=== PATIENT | female | born 1975 | race Caucasian/White ===

== ENCOUNTER → 2018-04-15 09:00 | Outpatient (CLI) | payer BC, SELFPAY ==
[2018-04-15 08:57] VITALS: BMI 37.4
[2018-04-20 08:57] LABS: HPV APTIMA, High Risk Negative (Negative)
== END ==
PROVIDERS: Referring Provider Nurse Practitioner Women's Health; Visit Provider Nurse Practitioner Women's Health
DX: Z12.4 Encounter for screening for malignant neoplasm of cervix (principal)
CPT/HCPCS: 87624; 88175; G0145

== ENCOUNTER → 2018-04-22 13:52 | Outpatient (CLI) | payer BC, SELFPAY ==
[2018-04-15 08:57] VITALS: BMI 37.4
--- NOTE | 2018-04-22 13:59 | US_ITS ---
STUDY: ULTRASOUND OF THE FEMALE PELVIS - COMPLETE REASON FOR EXAM: Female, 42 years old. Abnormal bleeding TECHNIQUE: Transabdominal and transvaginal (Transvaginal imaging, if present, was performed for enhanced visualization of uterus and endometrium, and posterior adnexal structures). COMPARISON: None. FINDINGS: The uterus is anteverted in the midline measuring 9.5 x 6.6 x 4.9 cm. Fundal fibroid 17 x 13 x 14 mm. Otherwise normal myometrial echotexture. Endometrium 11.6 mm, normal echotexture. Nabothian cysts of the cervix which is otherwise unremarkable. The right ovary measures 36 x 18 x 15 mm and the left ovary 28 x 17 x 12 mm. Each is normal in echotexture and contains small physiologic follicles with appropriate vascularity. There is a dominant follicle of left ovary measuring 15 mm. Simple cystic features. There is minimal cul-de-sac free fluid. There is no adnexal mass, suspicious cyst or free fluid. US/Pelvic (Non ) IMPRESSION: 17 mm fundal fibroid. Normal thickness and echotexture of the endometrium. Maximum endometrial thickness is 11.6 mm. Physiologic follicles of the ovaries with no suspicious features. Electronically Signed: Darrell Aldana MD at 17:14 EST Tel , Service support ,
--- NOTE | 2018-04-22 13:59 | US_ITS ---
STUDY: ULTRASOUND OF THE FEMALE PELVIS - COMPLETE REASON FOR EXAM: Female, 42 years old. Abnormal bleeding TECHNIQUE: Transabdominal and transvaginal (Transvaginal imaging, if present, was performed for enhanced visualization of uterus and endometrium, and posterior adnexal structures). COMPARISON: None. FINDINGS: The uterus is anteverted in the midline measuring 9.5 x 6.6 x 4.9 cm. Fundal fibroid 17 x 13 x 14 mm. Otherwise normal myometrial echotexture. Endometrium 11.6 mm, normal echotexture. Nabothian cysts of the cervix which is otherwise unremarkable. The right ovary measures 36 x 18 x 15 mm and the left ovary 28 x 17 x 12 mm. Each is normal in echotexture and contains small physiologic follicles with appropriate vascularity. There is a dominant follicle of left ovary measuring 15 mm. Simple cystic features. There is minimal cul-de-sac free fluid. There is no adnexal mass, suspicious cyst or free fluid. US/Transvaginal Non- IMPRESSION: 17 mm fundal fibroid. Normal thickness and echotexture of the endometrium. Maximum endometrial thickness is 11.6 mm. Physiologic follicles of the ovaries with no suspicious features. Electronically Signed: Darrell Aldana MD at 17:14 EST Tel , Service support ,
--- OUTSIDE RECORDS SUMMARY | 2018-06-08 10:24 | XMS RPT_ITS ---
:1975 Author Organization OHIP Support Name Relationship Address Phone [facility] Unavailable [address] + [place] [address] JOSEF MORALES Unavailable [address] + [place] [address] [place] Unavailable [address] + [place] [address] JOSEF MORALES Unavailable [address] + [place] [address] ROHIT LY Unavailable [address] + [place] [address] MARATHON Unavailable XX + [place] [address] JOSEF MORALES Unavailable [address] + [place] [address] ROHIT LY Unavailable [address] + [place] [address] JOSEF MORALES Unavailable [address] + [place] [address] OJSEF MORALES Unavailable [address] + [place] [address] JOSEF MORALES Unavailable [address] + [place] [address] JOSEF MORALES Unavailable [address] + [place] [address] JOSEF MORALES Unavailable [address] + [place] [address] JOSEF MORALES Unavailable [address] + [place] [address] Care Team Providers Name Role Phone IAN URENA, DR. OLMSTEAD Attending Unavailable TAMAYO, SON Primary Care Unavailable TAMAYO, SON Primary Care Unavailable ABILIO, ALECIA Attending Unavailable TAMAYO, SON Attending Unavailable TAMAYO, SON Primary Care Unavailable Clements, Clarisse Attending Unavailable Clements, Clarisse Referring Unavailable YVONNE GALDAMEZ Primary Care Unavailable YVONNE GALDAMEZ Consulting Unavailable Clements, Clarisse Attending Unavailable [place], Leonor Referring Unavailable Alba, Clarisse Attending Unavailable Clements, Clarisse Referring Unavailable PROBLEMS PROBLEMS DATE TYPE CONDITION / CODE ATTENDING STATUS SOURCE 04/16/2018 Unknown Z12.4 - Encounter Alba, Clarisse Active [place] for screening [facility] of cervix / Repository Z12.4(ICD-10) 04/15/2018 Unknown N92.0 - Excessive Clements, Clarisse Active [facility] and frequent [facility] menstruation with [facility] regular cycle / Repository N92.0(ICD-10) 04/15/2018 Unknown Z01.411 - Encounter Alba, Clarisse Active [place] for gynecological [facility] examination Hospital (general) (routine) Repository with abnormal findings / Z01.411(ICD-10) 04/15/2018 Unknown Z12.31 - Encounter Clements, Clarisse Active [place] for screening [facility] mammogram for [facility] malignant neoplasm Repository of breast / Z12.31(ICD-10) 12/26/2017 Admitting Encounter for RODRI TAMAYO Active [facility] medical examination Repository without abnormal findings / Z00.00(ICD-10) PROCEDURES PROCEDURES No Procedure Records FoundRESULTS RESULTS TRANSVAGINAL Observed: 04/22/2018 Status: F Source: HUA NON- 1:59 PM [facility] REPOSITORY [facility] Imaging Services [address] [place] [address] Transvaginal Non- MR#: [id number] Acct: [id number] Name: ANGY MORALES Brandi Rep #: [id number] : 1975 F 42 From: Darrell Aldana MD PCP: OUT OF TOWN DOCTOR Status: REG CLI Study: Transvaginal Non- Date of Exam: 04/22/18 Exam# [id number] Ordering Dr: Clarisse Willis PELLET PREPARATION OPERATOR-C STUDY: ULTRASOUND OF THE FEMALE PELVIS - COMPLETE REASON FOR EXAM: Female, 42 years old. Abnormal bleeding TECHNIQUE: Transabdominal and transvaginal (Transvaginal imaging, if present, was performed for enhanced visualization of uterus and endometrium, and posterior adnexal structures). COMPARISON: None. FINDINGS: The uterus is anteverted in the midline measuring 9.5 x 6.6 x 4.9 cm. Fundal fibroid 17 x 13 x 14 mm. Otherwise normal myometrial echotexture. Endometrium 11.6 mm, normal echotexture. Nabothian cysts of the cervix which is otherwise unremarkable. The right ovary measures 36 x 18 x 15 mm and the left ovary 28 x 17 x 12 mm. Each is normal in echotexture and contains small physiologic follicles with appropriate vascularity. There is a dominant follicle of left ovary measuring 15 mm. Simple cystic features. There is minimal cul-de-sac free fluid. There is no adnexal mass, suspicious cyst or free fluid. US/Transvaginal Non- IMPRESSION: 17 mm fundal fibroid. Normal thickness and echotexture of the endometrium. Maximum endometrial thickness is 11.6 mm. Physiologic follicles of the ovaries with no suspicious features. Electronically Signed: Darrell Aldana MD at 17:14 EST Tel , Service support , CC: MITA Willis; OUT OF [facility] DOCTOR Entry Level Manufacturing Engineer: Signed PELVIC (NON ) Observed: 04/22/2018 Status: F Source: [place] 1:59 PM [facility] REPOSITORY [facility] [place] [address] Pelvic (Non ) MR#: [id number] Acct: [id number] Name: ANGY MORALES Brandi Rep #: [id number] : 1975 F 42 From: Darrell Aldana MD PCP: OUT OF TOWN DOCTOR Status: REG CLI Study: Pelvic (Non ) Date of Exam: 04/22/18 Exam# [id number] Ordering Dr: Clarisse Willis STUDY: ULTRASOUND OF THE FEMALE PELVIS - COMPLETE REASON FOR EXAM: Female, 42 years old. Abnormal bleeding TECHNIQUE: Transabdominal and transvaginal (Transvaginal imaging, if present, was performed for enhanced visualization of uterus and endometrium, and posterior adnexal structures). COMPARISON: None. FINDINGS: The uterus is anteverted in the midline measuring 9.5 x 6.6 x 4.9 cm. Fundal fibroid 17 x 13 x 14 mm. Otherwise normal myometrial echotexture. Endometrium 11.6 mm, normal echotexture. Nabothian cysts of the cervix which is otherwise unremarkable. The right ovary measures 36 x 18 x 15 mm and the left ovary 28 x 17 x 12 mm. Each is normal in echotexture and contains small physiologic follicles with appropriate vascularity. There is a dominant follicle of left ovary measuring 15 mm. Simple cystic features. There is minimal cul-de-sac free fluid. There is no adnexal mass, suspicious cyst or free fluid. US/Pelvic (Non ) IMPRESSION: 17 mm fundal fibroid. Normal thickness and echotexture of the endometrium. Maximum endometrial thickness is 11.6 mm. Physiologic follicles of the ovaries with no suspicious features. Electronically Signed: Darrell Aldana MD at 17:14 EST Tel , Service support , CC: MITA Willis; OUT OF TOWN DOCTOR Entry Level Manufacturing Engineer: Signed SENIOR CLIENT ADVISOR OFFICE VISIT Observed: 04/15/2018 Status: F Source: SEVEN MILE REPORT 9:34 AM [facility] REPOSITORY [facility] [address] [place] [address] OFFICE VISIT Date of Service: 04/15/18 MR#: [id number] Acct: [id number] Name: ANGY MORALES Rep #: [id number] : 1975 Provider: MITA Willis Age/Sex: 42/F Location[facility] Status: Signed Intake Vital Signs04/15/18 Height 5 ft 8 in 04/15/18 Weight: 246 lb 6 oz 04/15/18 Body Mass Index (BMI) 37.4 04/15/18 Blood Pressure 118/76 Intake Visit Reasons: ANNUAL Chief Complaint: Junior Legal Secretary Required: No Is patient in pain?: Yes (Pt. states pain on her right side) Pain scale (1-10): 4 Allergies Penicillins Adverse Reaction (Unknown, Verified 04/15/18 09:01) rash Medications multivitamin tablet 1 tab PO DAILY 04/15/18 [History Confirmed 04/15/18] Is last menstrual period known: Yes Last Menstral Period: 03/30/18 Post menopausal: No Patient : No : No PFSH Surgical History [place] teeth extracted (Acute) Family History Mother Breast cancer Hypertension Abnormal cholesterol test Social History number of children: 2 current occupational status: employed current occupation: Cardiovascular office Nurse Smoking Status: Never smoker alcohol intake: current alcohol intake frequency: holidays/special occasions only substance use type: does not use diet: low carbohydrate what type of physical activity do you participate in: walking frequency: other seatbelt use: always do you feel safe at home: Yes additional social history: Josef [employer] at [employer] Pregancy History 3 Elective abortions Hx Para 2 Spontaneous abortions 1 Past Pregnancies Del. DatName MA/WeeksOutcome Route [facility] LocaProviderFOB e ht en ia tn Unknown Veronique 2000 Unknown [place] 2003 HPI ANNUAL: Details: ANGY MORALES is a 42 year old who presents fornew patient annual exam. Menses monthly lasting 7 days, heavy with clotting. Changing protection every 2 hours 1-2 days. Evaluated for upper right abdominal pain, labs, CT all normal. Saw gastro. Last PAP: 2013 approx History of abnormal PAP: no Last mammogram: 2013 History of abnormal mammogram: no Condoms for contraception. , denies STD concerns Female Reproductive History Last Menstral Period: 03/30/18 ROS Const Constitutional: Denies fatigue, weight gain or weight loss Cardio Card: Denies chest pain Resp Resp: Denies cough or shortness of breath with activity GI GI: Denies abdominal pain, constipation, change in stools, vomiting or bloating : Reports as per HPI; denies urinary frequency, pelvic pain, urinary urgency, vaginal discharge, vaginal itching, urinary incontinence or difficulty urinating Exam Const General: cooperative, healthy appearing, no acute distress, well developed Orientation: alert, oriented to person, oriented to place HENFL Head: normal to inspection Neck Neck: normal visual inspection Thyroid: thyroid normal Lymphatic: no lymphadenopathy noted Chest Breast inspection: normal inspection of the breasts, normal inspection of the axillae Breast palpation: normal palpation of the breasts, normal palpation of the axillae, no axillary lymphadenopathy Resp Effort AND Inspection: normal respiratory effort GI Palpation: soft, nontender, no masses Rectal Exam: deferred External Female Exam: normal external appearance, normal appearance of the urethra Urethra: normal appearance of the urethra, normal palpation Speculum Exam - Vagina: normal appearance of the vagina, normal vaginal discharge Speculum Exam - Cervix: normal appearance of the cervix (pap collected) Bimanual Exam- Vagina AND Uterus: normal bimanual exam, uterine size normal, uterine shape normal, uterus non-tender Bimanual Exam- Adnexa, other: normal adnexae, no adnexal masses, adnexae non-tender, pelvic support normal Pelvic Support: normal Neuro General: alert, oriented x3 Psych Affect: normal affect Assessment AND Plan Problems 1. Encounter for gynecological examination with abnormal finding Z01.411 2. Encounter for screening mammogram for malignant neoplasm of breast Z12.31 3. Papanicolaou smear for cervical cancer screening Z12.4 4. Menorrhagia with regular cycle N92.0 Plan Completed breast and pelvic exam Reviewed diet and exercise Pap thin prep pap Ultrasound-discussed mirena IUD and written information given to consider Mammogram ordered Contraception condoms RTO 1 year, prn with problems Clarisse Willis PAN WASHER Orders Orders: Coding Level of Care Code Off vis,new,prev 40-64yrs Diagnoses Encounter for gynecological examination with abnormal finding Z01.411 Gynecological examination findings: abnormal findings PRESENT Encounter for screening mammogram for malignant neoplasm of breast Z12.31 Papanicolaou smear for cervical cancer screening Z12.4 Menorrhagia with regular cycle N92.0 04/15/18 0934 <Electronically signed by Clarisse BEDOLLA> Date Clarisse BEDOLLA Cosigner Signature: Date (if applicable) CC: PAP IG HPV APTIMA Collected: 04/15/2018 Status: F Source: HUA ,45 9:00 AM [facility] REPOSITORY Order Comment: CYTOLOGY INFORMATION: - CLINICAL INFORMATION: - DATE LMP/MENOPAUSE: N/A - COLLECTION VIAL: Thin Prep Vial - DICTATING TRANSCRIBING MACHINE SERVICER SOURCE: CERVICAL - COLLECTION TECHNIQUE: BRUSH/SPATULA Specimen Comment: [id number] Specimen Comment: Source.............Cervix Specimen Comment: No. of containers..01 ThinPrep Vial TYPE CODE TESTS RESULT OUT OF RANGE REFERENCE UNITS LAB L7400.0800 . Normal DIAGN Comment Result Comment: NEGATIVE FOR INTRAEPITHELIAL LESION AND MALIGNANCY. LAB L7400.0900 . Normal ADEQ Comment Result Comment: Satisfactory for evaluation. Endocervical and/or squamous metaplastic cells (endocervical component) are present. LAB L7400.1400 . Normal PERFORM Comment Result Comment: Rebecca Mclaughlin, Cooker Soda (ASCP) LAB L7400.2575 . Normal TEST METHOD Comment Result Comment: This liquid based ThinPrep(R) pap test was screened with the use of an image guided system. LAB L7400.2600 . Normal . COMM LAB L7400.2700 . Normal PAPSMR Comment Result Comment: The Pap smear is a screening test designed to aid in the detection of premalignant and malignant conditions of the uterine cervix. It is not a diagnostic procedure and should not be used as the sole means of detecting cervical cancer. Both false-positive and false-negative reports do occur. LAB L7400.2760 Negative Normal HPV APTIMA, Negative HR Result Comment: This test detects fourteen high-risk HPV types (16/18/31/33/35/39/45/ 51/52/56/58/59/66/68) without differentiation. Performed at: - [facility] [id number] Repairer Shoe Sticks: Lilia Lester MD, Phone: [phone] Performed at: =G - [facility] [address] [id number] Repairer Shoe Sticks: Lilia Lester MD, Phone: [phone] Performed By: #### L7400.0280 #### [facility] (refer to report for specific site) refer to report for address and phone number CMP Collected: 12/26/2017 Status: F Source: [facility] Ele[facility]ate 8:34 AM [facility] REPOSITORY TYPE CODE TESTS RESULT OUT OF REFERENCE UNITS RANGE LAB GLU(LOINC) 70-110 mg/dL Glucose High Level 112 LAB NA(LOINC) 136-145 mEq/L Sodium Level 142 LAB K(LOINC) 3.5-5.0 mEq/L Potassium Level 4.5 LAB CL(LOINC) 98-110 mEq/L Chloride 107 LAB CO2(LOINC) 22-32 mEq/L CO2 28 LAB EBAL(LOINC 4.0-15.0 mEq/L ) Electrolyte Balance 7.0 LAB BUN(LOINC) 8.0-22.0 mg/dL BUN 15.0 LAB CRE(LOINC) 0.50-1.20 mg/dL Creatinine Lvl (s) 0.84 LAB BC(LOINC) 10.0-22.0 ratio BUN/Creatinine 17.9 Ratio LAB CA(LOINC) 8.4-10.1 mg/dL Calcium Lvl 8.7 LAB PROT(LOINC 6.0-8.5 G/dL ) Total Protein 6.9 LAB ALB(LOINC) 3.2-4.8 G/dL Albumin Level 3.9 LAB GLB(LOINC) 1.5-3.8 G/dL Globulin 3.0 LAB AG(LOINC) 0.9-1.6 ratio A/G Ratio 1.3 LAB BILT(LOINC 0.2-1.2 mg/dL ) Bili Total 0.3 LAB AP(LOINC) 38-126 U/L Alk Phos 43 LAB AST(LOINC) 8-34 U/L AST/SGOT 8 LAB ALT(LOINC) 10-49 U/L ALT/SGPT 22 Performed By: #### CMP, GFR, LIPID, CBC, ADIFF, ANEU, A1C #### [address] [address] .GFR Collected: 12/26/2017 Status: F Source: [facility] 8:34 AM [facility] REPOSITORY TYPE CODE TESTS RESULT OUT OF REFERENCE UNITS RANGE LAB GFRAA(LOINC ml/min/1.73 ) sqm GFR >60 Z[place]ian Result Comment: GFR Population mean for , Non- Americans Ages 20-29 = 116 mL/min/1.73 sq.m. Ages 30-39 = 107 mL/min/1.73 sq.m. Ages 40-49 = 99 mL/min/1.73 sq.m. Ages 50-59 = 93 mL/min/1.73 sq.m. Ages 60-69 = 85 mL/min/1.73 sq.m. Ages 70+ = 75 mL/min/1.73 sq.m. Chronic Kidney Disease: Less than 60 mL/min/1.73 square meters End Stage Renal Disease: Less than 15 mL/min/1.73 square meters LAB GFRNO(LOINC) ml/min/1.73sqm GFR Non- >60 Result Comment: GFR Population mean for , Non- Americans Ages 20-29 = 116 mL/min/1.73 sq.m. Ages 30-39 = 107 mL/min/1.73 sq.m. Ages 40-49 = 99 mL/min/1.73 sq.m. Ages 50-59 = 93 mL/min/1.73 sq.m. Ages 60-69 = 85 mL/min/1.73 sq.m. Ages 70+ = 75 mL/min/1.73 sq.m. Chronic Kidney Disease: Less than 60 mL/min/1.73 square meters End Stage Renal Disease: Less than 15 mL/min/1.73 square meters Performed By: #### CMP, GFR, LIPID, CBC, ADIFF, ANEU, A1C #### [address] [address] LIPID Collected: 12/26/2017 Status: F Source: [facility] 8:34 AM [facility] REPOSITORY TYPE CODE TESTS RESULT OUT OF REFERENCE UNITS RANGE LAB CHOL(LOINC 50-199 mg/dL ) Cholesterol 174 Result Comment: Cholesterol Reference Interval: Less than 200 Desirable 200-239 Borderline high risk 240 and above High risk LAB TRIG(LOINC) 3-149 mg/dL Triglycerides 119 Result Comment: Triglyceride Reference Interval: Less than 150 Normal 150-199 Borderline high risk 200-499 High risk 500 or higher Very high risk LAB HD(LOINC) 40-59 mg/dL HDL Cholesterol 47 Result Comment: HDL Reference Interval: Less than 40 Low - high risk 60 or above Optimal/lowers risk LAB LDL(LOINC) 0-129 mg/dL LDL Cholesterol 103 Result Comment: LDL is a calculated result and requires a 12-hr fast. LDL Reference Interval: Less than 100 Optimal 100-129 Near or above optimal 130-159 Borderline high risk 160-189 High risk 190 and above Very high risk Performed By: #### CMP, GFR, LIPID, CBC, ADIFF, ANEU, A1C #### [facility] [address] [place] [address] CBC Collected: 12/26/2017 Status: F Source: [facility] 8:34 AM [facility] REPOSITORY TYPE CODE TESTS RESULT OUT OF REFERENCE UNITS RANGE LAB WBC(LOINC) 4.50-10.80 10 3/mcL WBC 5.20 LAB RBCCT(LOINC 4.10-5.30 10 6/mcL ) RBC 4.38 LAB HGB(LOINC) 12.0-16.0 G/dL Hgb 12.6 LAB HCT(LOINC) 34.0-46.0 % Hct 37.7 LAB MCV(LOINC) 80.0-99.0 fL MCV 86.2 LAB MCH(LOINC) 27.0-33.0 pg MCH 28.7 LAB MCHC(LOINC) 32.0-36.0 G/dL MCHC 33.4 LAB RDW(LOINC) 11.5-15.5 % RDW 15.0 LAB PLT(LOINC) 150-450 10 3/mcL Platelet 232 LAB MPV(LOINC) 6.6-10.5 fL MPV 9.5 Performed By: #### CMP, GFR, LIPID, CBC, ADIFF, ANEU, A1C #### [place] [id number] .AUTO DIFF Collected: 12/26/2017 Status: F Source: [facility] 8:34 AM [facility] REPOSITORY TYPE CODE TESTS RESULT OUT OF REFERENCE UNITS RANGE LAB CONCEPCION(LOINC) 50.0-75.0 % Neutrophil % 59.2 LAB LYM(LOINC) 20.0-40.0 % Lymphocyte % 31.7 LAB MON(LOINC) 2.0-13.0 % Monocyte % 7.0 LAB EO(LOINC) 0.0-6.0 % Eosinophil % 1.8 LAB BAS(LOINC) 0.0-2.5 % Basophil % 0.3 LAB ABLYM(LOIN 0.90-4.32 10 3/mcL C) Lymphocyte, 1.60 Absolute LAB MERY(LOINC 0.09-1.40 10 3/mcL ) Monocyte, 0.40 Absolute LAB AEOS(LOINC 0.00-0.65 10 3/mcL ) Eosinophil, 0.10 Absolute LAB ABAS(LOINC 0.00-0.27 10 3/mcL ) Basophil, 0.00 Absolute Performed By: #### CMP, GFR, LIPID, CBC, ADIFF, ANEU, A1C #### [place] [address] .NEUABS Collected: 12/26/2017 Status: F Source: [facility] 8:34 AM [facility] REPOSITORY TYPE CODE TESTS RESULT OUT OF REFERENCE UNITS RANGE LAB ANEU(LOINC) 2.25-8.10 10 3/mcL Neutrophil, 3.10 Absolute Performed By: #### CMP, GFR, LIPID, CBC, ADIFF, ANEU, A1C #### [place] [address] A1C Collected: 12/26/2017 Status: F Source: [facility] 8:34 AM [facility] REPOSITORY TYPE CODE TESTS RESULT OUT OF RANGE REFERENCE UNITS LAB A1C(LOINC) 4.0-6.0 % Hgb A1c 5.3 Performed By: #### CMP, GFR, LIPID, CBC, ADIFF, ANEU, A1C #### [place] [address] Observed: 09/05/2017 Status: F Source: BRONX Elevaate [facility] 7:36 PM [facility] REPOSITORY . MICRO - Microbiology PROCEDURE: Urine Culture [*1] SOURCE: Urine, Clean Catch BODY SITE: COLLECTED DATE/TIME: 09/05/2017 19:36 EDT RECEIVED DATE/TIME: 09/05/2017 21:55 EDT START DATE/TIME: 09/05/2017 21:55 EDT FREE TEXT SOURCE: FINAL REPORTS Final Report [] Verified Date/Time/Personnel: 09/07/2017 09:22 EDT >100,000 organisms per mL Escherichia coli PRELIMINARY REPORTS Preliminary Report [] Verified Date/Time/Personnel: 09/06/2017 11:32 EDT >100,000 organisms per mL Gram Negative Rods Final identification and MICHELLE to follow. SUSCEPTIBILITY RESULTS Escherichia coli Antibiotic MICHELLE Dilutn MICHELLE Interp Ampicillin <=8 Susceptible Cefazolin <=8 Susceptible Ciprofloxacin <=1 Susceptible Gentamicin <=4 Susceptible Levofloxacin <=2 Susceptible Meropenem <=1 Susceptible Nitrofurantoin <=32 Susceptible Trimethoprim/ <=2/38 Susceptible Sulfa Performing Locations *1: This test was performed at: [address], [address] [place] [address] Performed By: #### CUR #### [place] [address] CT ABDOMEN/PELVIS Observed: 06/26/2017 Status: F Source: BRONX W/CONTRAST 9:00 AM [facility] REPOSITORY ORIGINAL CT ABDOMEN/PELVIS W/CONTRAST CLINICAL STATEMENT: ABDOMINAL PAIN COMPARISON: None FINDINGS:Today's exam was performed following oral and IV contrast material. There are no prior CTs available for comparison. Images through the lung bases demonstrate a few punctate peripheral scarlike changes without focal consolidation or pleural or pericardial effusion. Liver demonstrates mild low attenuation consistent wi th fatty infiltration. Gallbladder is unremarkable. Pancreas demonstrates no acute contributory findings. The adrenal glands and kidneys are unremarkable. Symmetric enhancement to the renal parenchyma without confirmatory evidence of medullary sponge kidney on contrast enhanced CT images is noted. No dispro portionate bowel dilatation to suggest a focal obstruction is noted. There is no upper abdominal adenopathy. Tiny 1 cm fat-containing umbilical hernia is noted. The appendix is normal. Uterus and adnexa are present. There are adnexal cystic changes likely physiologic. There is no gross evidence of free fluid in the pelvis. Bladder is mildly distended and unremarkable. No inguinal or i liac adenopathy is noted area IMPRESSION:No acute abdominal or pelvic pathology to explain the patient's symptoms This exam was performed according to our departmental dose optimization program, and includes the following measures where applicable: automated exposure control, adjustment of the mAs and/or kVp accord ing to patient size and/or exam, and an iterative reconstruction algorithm. Interpreted By: Ludy Deleon MD Preliminary Report By: Ludy Deleon MD Electronically Signed By: Ludy Deleon MD Dictated Date: 06/26/2017 9:38:40 AM Prelim Date: 06/26/2017 9:38:40 AM Sign Date: 06/26/2017 9:42:48 AM ALLERGIES ALLERGIES DATE TYPE / CODE NAME / CODE REACTION SEVERITY SOURCE 04/15/2018 Drug Penicillins/ Rash Unknown [facility] Allergy/4160 [id number]([facility] 01934(SNOMED XNORM) Repository CT) ENCOUNTERS ENCOUNTERS ADMIT/DISCHARGE ACCOUNT NUMBER ADMITTING ENCOUNTER LOCATION SOURCE CLASS 04/22/2018 [id number] [facility] ding:[facility] Repository 04/15/2018 [id number] [facility] ding:[facility] Repository 04/15/2018/04/15/20 [id number] Ambulatory BMSBuilding: [place] [facility] Repository 12/26/2017/12/31/19 [id number] [address] [facility] Repository 09/05/2017/09/06/19 [id number] Ambulatory A[facility]: [facility] Repository 06/26/2017/06/26/19 [id number] Ambulatory [address] Health g:[facility] Repository PAYERS PAYERS ENCOUNTER GUARANTOR PAYER SUBSCRIBER SOURCE 04/22/2018 JOSEF [facility] JOSEF Hua [id number] Insurance:ANTHEMPolickelle MATHERSDOB: [facility] [place]: [id number] [id number] Repository 12[address]Pcg: [phone]) Date:[id number] [phone] () [id number], [place] [address]PN: 04/22/2018 Secondary NOT GIVENUNK [place] Insurance:SELF PAY [facility] Number: Effective Repository Date:2018-04-20 04/15/2018 JOSEF Primary JOSEF [place] [id number] Insurance:ANTHEMPolicy MATHERSDOB: [facility] Number: [id number] [id number] Repository [address]Gtc: (330) Date:[id number] [phone] () [id number], [place] [address]BR: 04/15/2018 Secondary NOT GIVENUNK [place] Insurance:SELF PAY [facility] Number: Effective Repository Date:2018-04-15 04/15/2018 JOSEF Primary JOSEF [place] [id number] Insurance:ANTHEMPolicy MATHERSDOB: Community [facility] [place]: [id number] [id number] Repository [address]Gfc: (330) Date:[id number] [phone] () [id number], [place] [address]HR: 04/15/2018 Secondary NOT GIVENUNK [place] Insurance:SELF PAY [facility] Number: Effective Repository Date:2018-04-15 12/26/2017 ANGY A Primary [facility] MATHERSDOB: Insurance:ANTHEM BLUE MATHERSDOB: [facility] [place] [id number] [facility]CIAL[facility] [id number] [place] [address] Number: [address] [place], [place] [id number] [place], [place] [address]Ssd: 000) Date:2017-12-26 [id number]: () [id number] [phone] Name:MATTHIAS AMEZQUITA ()Tel: [phone], [place] [phone] () [phone]: 09/05/2017 [facility]: [facility]: [facility] [place] CROSS COMMERCIALPolmercyone [facility] [id number] [facility] Number: [address] [place], [place] [id number] [place], [place] [address]Qgi: (000) Date:2017-09-05 [id number]: (WP) [id number] [phone] Name:BPO [employer]OX (HP)Tel: [phone] [place] [phone] (WP) [phone]: 06/26/2017 ANGY Paz [facility]: [facility]LE[facility]B: [facility] [place] [facility] COMMERCIALThomas [facility] [id number] [facility] Number: [address] [place], [place] [id number] [place], [place] [address]Hlv: (000) Date:2017-06-18 62812Ndz: (WP) [id number] [phone] Name:[employer]PO BOX (HP)Tel: [phone] [place] [phone] (WP) [phone]:
== END ==
PROVIDERS: Referring Provider Nurse Practitioner Women's Health; Visit Provider Nurse Practitioner Women's Health
DX: N92.0 Excessive and frequent menstruation with regular cycle (principal)
CPT/HCPCS: 76830; 76856; 93976

== ENCOUNTER → 2018-06-10 11:49 | Outpatient (CLI) | payer BC, SELFPAY ==
[2018-04-15 08:57] VITALS: BMI 37.4
--- NOTE | 2018-06-10 11:53 | BI_ITS ---
MAMMOGRAPHY - BILATERAL SCREENING REASON FOR EXAM: Female, 42 years old. Routine annual screening examination. PERTINENT HISTORY: Mother with breast cancer. TECHNIQUE: Digital bilateral breast tawanna (3D mammographic acquisition) in the CC and MLO projections. 2-D mediolateral oblique (MLO) and craniocaudad (CC) views of both breasts were obtained. CAD: Full Field Digital Mammography with Computer Added Detection was performed. COMPARISON: No comparison mammograms available at this time. If any prior films become available, an addendum to this report can be generated. FINDINGS: Breast Composition: The breasts are heterogeneously dense, which may obscure small masses. There are no dominant masses or suspicious calcifications. Several small benign-appearing bilateral axillary lymph nodes. No other significant abnormalities are identified. BI/SCREENING MAMM (CAD), BILAT IMPRESSION: Negative screening mammogram. Yearly followup mammogram recommended. (A) ASSESSMENT CATEGORY: BIRADS Category 2: Benign. A letter regarding these results will be sent to the patient by the facility within 30 days. Approximately 10% of breast cancers are not detected by mammography. A normal mammogram should not delay biopsy of a clinically suspicious abnormality. [id number] Electronically Signed: Manuel Fofana MD at 15:04 EST , Service support ,
== END ==
PROVIDERS: Referring Provider Nurse Practitioner Women's Health; Visit Provider Nurse Practitioner Women's Health
DX: Z12.31 Encounter for screening mammogram for malignant neoplasm of breast (principal)
CPT/HCPCS: 77063; 77067

== ENCOUNTER → 2018-10-01 17:07 | Outpatient (CLI) | payer BC, SELFPAY ==
--- NOTE | 2018-10-01 | SKTAG_PTH ---
PATIENT: ANGY MORALES LOC: [facility] U#:[id number] AGE/SX: 49/F ROOM: RE10/01/[address]: GRAEME Trammell : 1975 BED: DIS: SPEC #: [id number] RECD: 10/01/18 16:42 STATUS: ANKIT SERGEY #: [id number] SARAHY: 10/01/18 00:[address]: Clarisse Willis NP DEPT: SURGICAL PATHOLOGY RECD BY: Gurpreet Fine ENTERED: 10/05/18 08:27 SP TYPE: SKIN TAG OT DR: No Primary Care Phys Tissues: Right breast, NOS Procedures: Surgery Specimen Level III HEADER OPERATION: Skin tag removal PRE-OP DIAGNOSIS: Skin tag TISSUE SUBMITTED: Skin tag right breast MICROSCOPIC DIAGNOSIS Right breast, skin tag, removal: Acrochordon. CE:ar 10/06/18 MICROSCOPIC DESCRIPTION Slides are reviewed. GROSS DESCRIPTION Received is one container labeled with the patient's name and not further designated. The specimen consists of a rubbery and somewhat raisinoid fragment of excised skin measuring 1.8 x 1.5 x 0.6 cm. The presumed margin of excision is inked. The specimen is serially sectioned and totally submitted in one cassette. / AM:ar 10/05/18 TC:1 CPT: 86208
[2018-10-01 08:10] VITALS: BMI 36.7
== END ==
PROVIDERS: Referring Provider Nurse Practitioner Women's Health; Visit Provider Nurse Practitioner Women's Health
DX: L91.8 Other hypertrophic disorders of the skin (principal)
CPT/HCPCS: 88304

== ENCOUNTER → 2019-04-14 12:43 | Outpatient (CLI) | payer BC, SELFPAY ==
[2019-04-14 09:55] VITALS: BMI 36.9
== END ==
PROVIDERS: Visit Provider Nurse Practitioner Women's Health
DX: N89.8 Other specified noninflammatory disorders of vagina (principal)
CPT/HCPCS: 87070; 87205

== ENCOUNTER → 2020-01-13 12:22 | Outpatient (CLI) | payer BC, SELFPAY ==
[2019-04-28 10:09] VITALS: BMI 36.9
--- NOTE | 2020-01-13 12:34 | US_ITS ---
STUDY: ULTRASOUND OF THE FEMALE PELVIS - COMPLETE REASON FOR EXAM: Female, 44 years old. aub LMP: 12/23/2019. TECHNIQUE: Transabdominal and Transvaginal TECHNICAL QUALITY: Adequate. COMPARISON: Comparison is made with prior examination dated 04/22/2018. FINDINGS: The uterus is anteverted and is in a midline position. The uterus measures 9.9 cm x 6.1 cm x 5 cm. Normal uterine cervix. The endometrium measures 4.8 mm in thickness, and is hyperechoic. There is no demonstrated endometrial mass. There is a 1 cm x 1 cm x 0.5 cm fibroid of the uterine body. I.U.D. - The patient does have an I.U.D. The IUD is within the fundal aspect of the endometrium. The right ovary is visualized. The right ovary measures 2.8 cm x 2 cm x 1.7 cm. There is no right ovarian cyst or ovarian mass. There is no visualized right adnexal mass or complex lesion. There is normal arterial and normal venous vascularity. The left ovary is visualized. The left ovary measures 3.8 cm x 3.2 cm x 2.7 cm. There is a 2.9 cm x 2.2 cm x 1.6 cm complex solid/cystic nodule in the left ovary. This may represent an hemorrhagic cyst. Follow-up is recommended. There is no visualized left adnexal mass or complex lesion. There is normal arterial and normal venous vascularity. There is no fluid in the cul-de-sac. The pre void volume of the bladder was 277 ml. US/Pelvic (Non ) IMPRESSION: Small uterine fibroid. IUD is seen within the fundal aspect of the endometrium. 2.9 cm x 2.2 cm x 1 0.6 mL complex solid/cystic nodule in the left ovary. This may represent an hemorrhagic cyst. Follow-up is recommended. Electronically Signed: Manuel Fofana, at 14:51 EDT , Service support ,
--- NOTE | 2020-01-13 12:34 | US_ITS ---
STUDY: ULTRASOUND OF THE FEMALE PELVIS - COMPLETE REASON FOR EXAM: Female, 44 years old. aub LMP: 12/23/2019. TECHNIQUE: Transabdominal and Transvaginal TECHNICAL QUALITY: Adequate. COMPARISON: Comparison is made with prior examination dated 04/22/2018. FINDINGS: The uterus is anteverted and is in a midline position. The uterus measures 9.9 cm x 6.1 cm x 5 cm. Normal uterine cervix. The endometrium measures 4.8 mm in thickness, and is hyperechoic. There is no demonstrated endometrial mass. There is a 1 cm x 1 cm x 0.5 cm fibroid of the uterine body. I.U.D. - The patient does have an I.U.D. The IUD is within the fundal aspect of the endometrium. The right ovary is visualized. The right ovary measures 2.8 cm x 2 cm x 1.7 cm. There is no right ovarian cyst or ovarian mass. There is no visualized right adnexal mass or complex lesion. There is normal arterial and normal venous vascularity. The left ovary is visualized. The left ovary measures 3.8 cm x 3.2 cm x 2.7 cm. There is a 2.9 cm x 2.2 cm x 1.6 cm complex solid/cystic nodule in the left ovary. This may represent an hemorrhagic cyst. Follow-up is recommended. There is no visualized left adnexal mass or complex lesion. There is normal arterial and normal venous vascularity. There is no fluid in the cul-de-sac. The pre void volume of the bladder was 277 ml. US/Transvaginal Non- IMPRESSION: Small uterine fibroid. IUD is seen within the fundal aspect of the endometrium. 2.9 cm x 2.2 cm x 1 0.6 mL complex solid/cystic nodule in the left ovary. This may represent an hemorrhagic cyst. Follow-up is recommended. Electronically Signed: Manuel Fofana, at 14:51 EDT , Service support ,
== END ==
PROVIDERS: Referring Provider Obstetrics & Gynecology; Visit Provider Obstetrics & Gynecology
DX: N93.9 Abnormal uterine and vaginal bleeding, unspecified (principal)
CPT/HCPCS: 76830; 76856

== ENCOUNTER 2021-08-23 08:05 | Outpatient (CLI) | payer BC, SELFPAY ==
--- NOTE | 2021-08-23 08:07 | BI_ITS ---
MAMMOGRAPHY - BILATERAL SCREENING REASON FOR EXAM: Female, 45 years old. Routine annual screening examination. PERTINENT HISTORY: Mother with breast cancer. TECHNIQUE: Digital bilateral breast silas (3D mammographic acquisition) in the CC and MLO projections. 2-D mediolateral oblique (MLO) and craniocaudad (CC) views of both breasts were obtained. CAD: Full Field Digital Mammography with Computer Added Detection was performed. COMPARISON: Comparison is made with prior study dated 06/10/2018. FINDINGS: Breast Composition: The breasts are heterogeneously dense, which may obscure small masses. There are no dominant masses or suspicious calcifications. Stable small benign-appearing bilateral axillary lymph nodes. No other significant abnormalities are identified. There has been no significant change since the prior study. BI/SCRN MAMM (CAD)W/SILAS BILAT IMPRESSION: Stable bilateral screening mammogram. Yearly follow-up mammogram recommended. (A) ASSESSMENT CATEGORY: BIRADS Category 2: Benign. A letter regarding these results will be sent to the patient by the facility within 30 days. Approximately 10% of breast cancers are not detected by mammography. A normal mammogram should not delay biopsy of a clinically suspicious abnormality. [id number] Electronically Signed: Manuel Fofana MD at 9:04 EDT ,
== END 2021-08-23 23:59 | disposition home or self-care (01) ==
LOC: OPBI 08:06
PROVIDERS: PCP Family Medicine; Referring Provider Nurse Practitioner Women's Health; Visit Provider Nurse Practitioner Women's Health
DX: Z12.31 Encounter for screening mammogram for malignant neoplasm of breast (principal); Z80.3 Family history of malignant neoplasm of breast
CPT/HCPCS: 77063; 77067

== ENCOUNTER → 2022-10-21 | Outpatient (CLI) | payer BC, SELFPAY ==
[2022-10-24 14:09] LABS: HPV APTIMA, High Risk Negative (Negative)
== END | disposition home or self-care (01) ==
LOC: LABSPEC 16:55
PROVIDERS: PCP Family Medicine; Referring Provider Nurse Practitioner Women's Health; Visit Provider Nurse Practitioner Women's Health
DX: R30.0 Dysuria (principal); Z12.4 Encounter for screening for malignant neoplasm of cervix
CPT/HCPCS: 87086; 87088; 87624; 88175; G0145

== ENCOUNTER → 2023-05-07 | Outpatient (CLI) | payer BC, SELFPAY ==
--- NOTE | 2023-05-07 07:18 | BI_ITS ---
MAMMOGRAPHY - BILATERAL SCREENING 3-D TOMOSYNTHESIS REASON FOR EXAM: Female, 47 years old. Annual screening mammogram. PERTINENT HISTORY: Mother with breast cancer. TECHNIQUE: 2-D mammograms and 3-D Tomosynthesis of the breast (s) were performed. CAD was performed. COMPARISON: August 23, 2021 FINDINGS: The breast composition is heterogeneously dense which may obscure small masses. Stable normal lymph nodes and scattered benign calcifications. No dominant masses, suspicious microcalcifications, asymmetries, skin thickening or nipple retraction. BI/SCRN MAMM (CAD)W/SILAS BILAT IMPRESSION: No interval change and no mammographic signs of malignancy. Routine annual screening mammogram recommended. ASSESSMENT CATEGORY: BIRADS Category 2: Benign. A letter regarding these results will be sent to the patient by the facility within 30 days. FOLLOW UP RECOMMENDATION: Yearly follow up mammogram recommended. (A) Approximately 10% of breast cancers are not detected by mammography. A normal mammogram should not delay biopsy of a clinically suspicious abnormality. Electronically Signed: Jesus iMnor MD at 9:18 EST ,
== END | disposition home or self-care (01) ==
LOC: OPBI 07:15
PROVIDERS: PCP Family Medicine; Referring Provider Nurse Practitioner Women's Health; Visit Provider Nurse Practitioner Women's Health
DX: Z12.31 Encounter for screening mammogram for malignant neoplasm of breast (principal)
CPT/HCPCS: 77063; 77067

== ENCOUNTER → 2024-05-19 | Outpatient (CLI) | payer BC, SELFPAY ==
--- NOTE | 2024-05-19 16:48 | BI_ITS ---
MAMMOGRAPHY - BILATERAL SCREENING REASON FOR EXAM: Female, 48 years old. Routine annual screening examination. PERTINENT HISTORY: Mother with breast cancer. TECHNIQUE: Digital bilateral breast islas (3D mammographic acquisition) in the CC and MLO projections. 2-D mediolateral oblique (MLO) and craniocaudad (CC) views of both breasts were obtained. CAD: Full Field Digital Mammography with Computer Added Detection was performed. COMPARISON: Comparison is made with prior study dated May 07, 2023 and August 23, 2021. FINDINGS: Breast Composition: The breasts are heterogeneously dense, which may obscure small masses. There are no dominant masses or suspicious calcifications. Stable small bilateral axillary lymph nodes. No other significant abnormalities are identified. There has been no significant change since the prior study. BI/SCRN MAMM (CAD)W/SILAS BILAT IMPRESSION: Stable bilateral screening mammogram. Yearly follow-up mammogram recommended. (A) ASSESSMENT CATEGORY: BIRADS Category 2: Benign. A letter regarding these results will be sent to the patient by the facility within 30 days. Approximately 10% of breast cancers are not detected by mammography. A normal mammogram should not delay biopsy of a clinically suspicious abnormality. [id number] Electronically Signed: Manuel Fofana MD at 8:41 EST ,
== END | disposition home or self-care (01) ==
LOC: OPBI 05-20 14:49
PROVIDERS: PCP Family Medicine; Referring Provider Nurse Practitioner Women's Health; Visit Provider Nurse Practitioner Women's Health
DX: Z12.31 Encounter for screening mammogram for malignant neoplasm of breast (principal)
CPT/HCPCS: 77063; 77067

== ENCOUNTER → 2025-02-21 | Outpatient (CLI) | payer BC, SELFPAY ==
[2025-02-21 17:10] LABS: Follicle Stimulating Hormone 72.7 mIU/mL
[2025-02-24 21:07] LABS: Anti-Mullerian Hormone,Serum < 0.015 ng/mL (.)
== END | disposition home or self-care (01) ==
PROVIDERS: PCP Family Medicine; Visit Provider Nurse Practitioner Women's Health
DX: R23.2 Flushing (principal)
CPT/HCPCS: 36415; 82670; 83001; 83516